=== PATIENT | male | born 1985 | race Caucasian/White ===

== ENCOUNTER → 2017-01-11 | Outpatient (CLI) | payer BC ==
--- NOTE | 2017-01-11 11:44 | DIAGNOSTIC IMAGING REPORT ---
RIGHT KNEE 4 OR MORE CLINICAL HISTORY: Right knee pain following injury. COMPARISON: None FINDINGS: Alignment of the right knee is anatomic. There is no fracture or suspicious lesion. There is a possible small right knee joint effusion. IMPRESSION: 1. No acute fracture. 2. Possible small right knee joint effusion. Electronically signed by: Dallas Bush M.D. 01/11/2017 11:43 AM Dictated Date/Time: 01/11/2017 11:37 AM
== END | disposition home or self-care (01) ==
LOC: C.RDSM 11:23 → MERGE 11:23
PROVIDERS: ATTEND Family Medicine
DX: M25.561 Pain in right knee (principal)

== ENCOUNTER → 2017-01-16 | Day surgery (SDC) | payer BC ==
--- NOTE | 2017-01-13 16:01 | History and Physical: Surg Cnt ---
History & Physical Date Jan 13, 2017. Chief Complaint right knee pain History of Present Illness The patient is a 31 year old male with complaints of right knee pain s/p injury. No prior history. Pain is lateral. Mild swelling and stiffness reported. Denies calf pain or numbness. Past Medical/Surgical History No current treat pathology and negative surgeries Additional History Hepatic Disease: No Endocrine Disorder: No Kidney Disease: No Hypertension: No Heart Disease: No Bleeding Tendencies: No Infectious Diseases: No Physical Examination Skin: warm/dry, no rash Eyes: normal inspection, EOMI, sclerae normal ENT: normal ENT inspection, pharynx normal Head: normocephalic, atraumatic Respiratory/Chest: lungs clear, normal breath sounds, no respiratory distress Cardiovascular: regular rate, rhythm, no edema, no murmur Abdomen / GI: normal bowel sounds, non tender Extremities: normal inspection, + pertinent finding (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 debridement, chondroplasty vs. microfracture, exam under anesthesia by Dr. Burt. PT post op day [address] Burt follow up 2 weeks after surgery. Has crutches. [place] prescribed. No other questions.
[~2017-01-16] VITALS: Ht 180.3 cm; Wt 102.3 kg
[~2017-01-16] MED LIST: ATROPINE SULFATE 0.1 MG/ML 5ML SYR IV PRN; BUPIVACAINE/EPINEPHRINE 0.5% MPF 1:200,000 10 ML VIAL ONE; CEFAZOLIN IV 2,000 MG/60 ML D5W IV ONE; DEXAMETHASONE SOD INJ 4 MG/ML VIAL ONE; EpINEphrine HCL INJ 1 MG/ML 5ML SYRINGE ONE; EpINEphrine INJ 1MG/ML AMP 1 MG/ML AMP ONE; FENTANYL CITRATE INJ 50 MCG/1 ML 2 ML VIAL ONE; KETOROLAC TROMETHAMINE 30 MG/ML VIAL IV. PRN; KETOROLAC TROMETHAMINE 30 MG/ML VIAL ONE; LABETALOL HCL IV 5 MG/ML 20ML IV PRN; LIDOCAINE HCL 1% 20 ML VIAL ONE; LIDOCAINE HCL 2% 2 ML VIAL (20MG/ML) ONE; MEPERIDINE HCL 25 MG/ML CARP IV PRN; MIDAZOLAM HCL 1 MG/ML 2ML VIAL ONE; MoRPHine SULFATE 4 MG/ML 1 ML CARP\\VIAL IV PRN; ONDANSETRON INJ 2 MG/ML 2 ML VIAL IV PRN; ONDANSETRON INJ 2 MG/ML 2 ML VIAL ONE; OXYCODONE/ACETAMINOPHEN 5-325 TAB PO PRN; PROPOFOL IV EMULSION 10 MG/ML 20 ML VIAL IV ONE
[2017-01-16 07:45] VITALS: Ht 180.3 cm; Wt 102.3 kg
--- NOTE | 2017-01-16 09:30 | History & Physical Bridge - SC ---
H&P Re-Evaluation Bridge Note: I have examined the patient, reviewed the History & Physical and in the interval since the performance of the History & Physical I have noted the following changes of clinical significance: No changes noted
--- NOTE | 2017-01-16 11:42 | Discharge Instructions-SurgCtr ---
Discharge Instructions Date of Service Jan 16, 2017. Visit Reason for Visit: Right Knee Lateral Meniscus Tear Discharge Discharge Diagnosis / Problem: Status post Right knee arthroscopy partial lateral meniscectomy Discharge Goals Goal(s): Decrease discomfort, Improve function, Increase independence Activity Recommendations Activity Limitations: per Instructions/Follow-up section Exercise/Sports Limitations: gradually increase as tolerated May Resume Sexual Activity: when tolerated Shower/Bathe: may shower/bathe in 3 days Driving or Machine Use: When off Narcotics and able to ambulate without a limp Weightbearing Status: Right weightbearing (as tolerated) Anesthesia . Post Anesthesia Instructions: If you have had General Anesthesia or IV Sedation: * Do not drive today. * Resume driving when surgeon permits. * Do not make important decisions or sign legal documents today. * Call surgeon for: 1. Temperature elevations greater than 101 degrees F. 2. Uncontrollable pain. 3. Excessive bleeding. 4. Persistent nausea and vomiting. 5. Medication intolerance (nausea, vomiting or rash). * For nausea and vomiting use only clear liquids such as: tea, soda, bouillon until nausea subsides, then gradually increase diet as tolerated. * If you have any concerns or questions, call your surgeon's office. If physician is unavailable and it is an emergency, call 911 or go to the nearest emergency room. . Instructions / Follow-Up Instructions / Follow-Up Dr. Burt in 10-15 days. PT in 2-3 days. Diet Recommendations Home Diet: resume previous diet Procedures Procedures Performed: Right Knee Arthroscopy,Loose Body Removal, Partial Lateral Menisectomy, Chondroplasty , Exam Under Anesthesia Pending Studies Studies pending at discharge: no Medical Emergencies . Who to Call and When: Medical Emergencies: If at any time you feel your situation is an emergency, please call 911 immediately. . Non-Emergent Contact Non-Emergency issues call your: Surgeon Call Non-Emergent contact if: temperature is above 101.5, your pain is not controlled, wound has increased drainage, wound has increased redness . . "Provider Documentation" section prepared by Nigel Burt. .
--- NOTE | 2017-01-16 11:45 | [facility] Operative Report ---
Operative Report Operative Date Jan 16, 2017. Pre-Operative Diagnosis Right Knee Lateral Meniscus Tear Post-Operative Diagnosis Same + loose bodies, and chondromalacia Procedure(s) Performed 1) Right Knee Arthroscopy Chondroplasty: Patella, MFC. 2) Loose Body Removal. 3) Partial Lateral Menisectomy. 4) Exam Under Anesthesia. Surgeon Dr[facility] Medical Assistant Surgeon(s) Maria Esther Lopez PA-C (No fellow avail) Estimated Blood Loss 3 cc Findings The right knee was examined under anesthesia. Large effusion. Range of motion was 0-125. Ligamentous examination exhibited: stable Gabby, posterior drawer , varus and valgus stress at 0 & 30 degrees. ARTHROSCOPIC FINDINGS: There were multiple loose bodies in the suprapatellar pouch. 1) PATELLOFEMORAL JOINT: The articular cartilage of the Patella had Outerbridge type II changes centrally and Trochlea had a 3 x 3 mm circular loss of articular cartilage about the lateral proximal aspect of the trochlea grade 2, centrally there was type I changes. 2) GUTTERS: No loose bodies in the lateral gutter, there was one loose body in the medial gutter. 3) MEDIAL COMPARTMENT: The articular cartilage of the femur had Outerbridge type II changes from 40-90 diffusely and Tibia was intact. The medial meniscus was intact for the most part with a very small rent at the apex on the undersurface, less than 1 mm. 4) ACL/PCL: They were both visualized and probed to be intact. 5) LATERAL COMPARTMENT: The lateral compartment was then entered in a figure-of- four position. The femoral articular cartilage had some fissuring and the tibial articular cartilage had some type I changes medially. The lateral meniscus had a complex tear with a horizontal cleavage component as well as a displaced bucket handle tear in the white white zone. The displaced portion was significantly damaged. Fluids (cc crystalloids) 1000 Specimens n/a Drains n/a Anesthesia LMA Complication(s) None Disposition Recovery Room / PACU (Stable) Implants N/A Indications This is a 31-year-old male who has clinical and MRI findings consistent with meniscus tear and chondromalacia. I recommended that a right knee arthroscopy be performed with meniscus repair vs debridement, possible chondroplasty versus microfracture. The patient understands the risks of surgery, which include but not limited to: bleeding, infection, re-operation, damage to nerves and arteries , continued knee pain, progression of OA, DVT, and a 2-5% risk of becoming worse after surgery. The patient understands all of these instructions and explanations, all of his questions have been satisfactorily addressed and the patient has elected to proceed. Informed consent was signed. Description of Procedure The patient was taken to the Operating Room and placed in the supine position after general anesthetic was administered. My initials and a multidisciplinary time-out were used to identify the right leg as the correct operative limb. Prior to the incision, 2 grams of intravenous Ancef was given. The right knee was then injected with 20cc of a 50:50 mix of 1% Lidocaine plain and 0.5% Bupivacaine with epinephrine in a sterile fashion using the superolateral portal. The right leg was then prepped and draped in a standard sterile fashion. The anterolateral, anteromedial, and superolateral portals were injected with the 50:50 mixture noted above, for a total of 2 cc, in the standard fashion. An anterolateral arthroscopic portal was established with an 11-blade. Next, the arthroscope was introduced into the knee. A diagnostic arthroscopy commenced and both the superolateral and anteromedial portals were established under direct visualization using a spinal needle followed by an 11 blade in the standard fashion. The above findings were observed during the diagnostic arthroscopy. The loose bodies were removed as they were encountered with mechanical shaver and outflow cannula. The anterior fat pad were debrided with mechanical shaver and [place], to allow for better visualization. The articular cartilage damage was debrided back to stable margins as they were encountered with mechanical shaver. The lateral meniscus tear was evaluated and found to be irreparable and was debrided back to stable margin with multiple hand punches and mechanical shaver using both portals. The knee was copiously irrigated. The arthroscopic instruments were then removed. The portals were closed with 3-0 Prolene in a standard fashion. The wound was dressed with Xeroform gauze, sterile gauze, ABDs, sterile Webril, and a foot to thigh Elijah bandage. The patient was then transferred to the Recovery Room in stable condition. The sponge and needle counts were correct. Post-op Instructions: The patient will be WBAT. The patient may remove the operative dressing on Post -Op Day #2 and apply Band-Aids to the wounds. The patient may shower in 72 hours and is to wear the JOCELYN for 2 weeks on the operative limb. The patient is to use the pain medicine as needed and take the ASA for 2 weeks. The patient was also given a handout for home quad strengthening and seated self-assisted ROM exercises, which they may begin tomorrow. The patient was given a prescription for PT and is scheduled for an appointment later this week. The patient is to follow up with me in 10-15 days. I attest to the content of the Intraoperative Record and any orders documented therein. Any exceptions are noted below.
--- NOTE | 2017-01-16 11:53 | [facility] Operative Report ---
Operative Report Operative Date Jan 16, 2017. Pre-Operative Diagnosis Right Knee Lateral Meniscus Tear Post-Operative Diagnosis Same + loose bodies, and chondromalacia Procedure(s) Performed 1) Right Knee Arthroscopy Chondroplasty: Patella, MFC. 2) Loose Body Removal. 3) Partial Lateral Menisectomy. 4) Exam Under Anesthesia. Surgeon Dr. Sam Burt Manager Customer Service Surgeon(s) Maria Esther Lopez PA-C (No fellow avail) Estimated Blood Loss 3 cc Findings same Fluids (cc crystalloids) 1000 Specimens n/a Drains none Anesthesia general Complication(s) None Disposition Recovery Room / PACU Implants none Indications continued pain s/p running injury, MRI obtained and surgery recommended, consents signed. Description of Procedure taken to the OR, prepped and draped, I was present the entire case, please see Dr. Burt's op note for further detail. I attest to the content of the Intraoperative Record and any orders documented therein. Any exceptions are noted below.
[2017-01-16] MEDS: FENTANYL CITRATE INJ 50 MCG/1 ML 2 ML VIAL IV PRN ×2 (12:03→12:16)
[2017-01-16 12:44] VITALS: TEMP 36.4
--- NOTE | 2017-01-16 13:03 | Anesthesia Progress Nt - [facility] ---
Anesthesia Post Op Note Date & Time Jan 16, 2017 at 13:03 Vital Signs Vital Signs Past 12 Hours Date Time Temp Pulse Resp B/P (MAP) Pulse Ox O2 Delivery O2 Flow Rate FiO2 01/16/17 12:44 36.4 84 18 138/85 (102) 97 Room Air 01/16/17 12:35 137/91 01/16/17 12:34 83 16 01/16/17 12:34 83 16 93 01/16/17 12:33 67 15 94 01/16/17 12:33 66 15 01/16/17 12:30 135/88 01/16/17 12:28 75 18 01/16/17 12:28 77 18 96 01/16/17 12:27 148/90 01/16/17 12:26 80 14 01/16/17 12:26 80 14 95 01/16/17 12:25 36.8 64 16 138/91 95 Room Air 01/16/17 12:25 133/100 01/16/17 12:21 83 16 138/91 96 01/16/17 12:21 82 16 01/16/17 12:16 64 18 01/16/17 12:16 64 18 137/91 100 01/16/17 12:11 67 15 01/16/17 12:11 67 15 100 01/16/17 12:10 139/87 01/16/17 12:09 65 16 01/16/17 12:09 63 16 100 01/16/17 12:06 131/98 01/16/17 12:04 71 16 01/16/17 12:04 66 16 100 01/16/17 12:00 131/88 01/16/17 11:59 77 21 100 01/16/17 11:59 75 21 01/16/17 11:55 126/78 01/16/17 11:54 62 18 99 01/16/17 11:54 62 18 01/16/17 11:50 123/81 01/16/17 11:49 74 16 01/16/17 11:49 36.7 61 16 133/79 99 Diffusion Mask 6 01/16/17 11:49 72 16 133/79 99 01/16/17 07:45 36.6 75 16 127/85 (99) 99 Room Air Notes Mental Status: alert / awake / arousable, participated in evaluation Pt Amnestic to Procedure: Yes Nausea / Vomiting: adequately controlled Pain: adequately controlled Airway Patency, RR, SpO2: stable & adequate BP & HR: stable & adequate Hydration State: stable & adequate Anesthetic Complications: no major complications apparent
[2017-01-16 13:18] VITALS: BP 132/90; PULSE 79; O2SAT 98
== END | disposition home or self-care (01) ==
LOC: X.SURG 07:27 → MERGE 07:27
PROVIDERS: ATTEND Orthopaedic Surgery Sports Medicine
DX: M23.261 Derangement of other lateral meniscus due to old tear or injury, right knee (principal); M94.261 Chondromalacia, right knee; M23.41 Loose body in knee, right knee